=== PATIENT | female | born 1950 ===

== ENCOUNTER 2017-11-29 08:51 | Day surgery (SDC) | payer MEDICAID ==
[2017-11-29 09:16] VITALS: BMI 30.9
[2017-11-29 09:26] VITALS: O2SAT 100
[2017-11-29] MEDS ORDERED: Propofol 10 mg/ml Inj (20 ML) ONE (11:18)
[2017-11-29 12:08] VITALS: TEMP 97.5
[2017-11-29 12:46] VITALS: BP 138/71
[2017-11-29 13:04] VITALS: PULSE 64; RESP 13
== END 2017-11-29 12:55 | disposition home or self-care (01) ==
LOC: C.ENDO 08:51
PROVIDERS: ATTEND Internal Medicine
DX: D12.5 Benign neoplasm of sigmoid colon (principal); K20.9 Esophagitis, unspecified; K25.9 Gastric ulcer, unspecified as acute or chronic, without hemorrhage or perforation; K29.70 Gastritis, unspecified, without bleeding; K64.8 Other hemorrhoids
CPT/HCPCS: 43239; 45385; 88305; 88313; 88342; J2001; J2704